=== PATIENT | male | born 1970 | race African-American/Black ===

== ENCOUNTER 2016-05-05 12:34 | Emergency (ER) | payer OTHER, SELFPAY ==
--- NOTE | 2016-05-05 13:47 | ERRECORD ---
[facility] EMERGENCY RECORD HPI URI (13:21 BGOE) CHIEF COMPLAINT: Patient presents for evaluation of nasal congestion, Patient presents for evaluation of cough. HISTORIAN: History provided by patient, patient with cough congeston over past week. mild f/c. martha po. no v/d. no sob. productive cough. not improving. mild fatigue. no aches or harmon. LOCATION: Symptoms are generalized. SEVERITY: Maximum severity of symptoms moderate, Currently symptoms are mild. TIME COURSE: Gradual onset of symptoms, There has been no change in the patient's symptoms over time. ASSOCIATED WITH: No associated chest pain, Associated with chills, Associated with fever, subjective, No associated headache, No associated neck pain, No associated shortness of breath. EXACERBATED BY: Patient's condition exacerbated by nothing. RELIEVED BY: Patient's condition relieved by nothing. ROS (13:22 BGOE) EYES: Negative eye review of systems. MUSCULOSKELETAL: Historian denies arthralgias. SKIN: Historian denies rash. NEUROLOGIC: Negative neurologic review of systems. ENDOCRINE: Negative endocrine review of systems. ALLERGIC/IMMUNOLOGIC: Normal allergy/immunologic system review. PSYCHIATRIC: Negative psychiatric review of systems. PAST MEDICAL HISTORY MEDICAL HISTORY: No past medical history, Flu vaccine not up to date, Tetanus not up to date, Pneumococcal vaccine not up to date. (12:48 CJEF) MALE SURGICAL HISTORY: testicle surgery. HERNIA SX. (12:48 CJEF) PSYCHIATRIC HISTORY: No previous psychiatric history. (12:48 CJEF) SOCIAL HISTORY: Patient drinks socially, Patient denies drug use, Patient currently uses tobacco, smokes cigarettes, social. (12:48 CJEF) NOTES: Nursing records reviewed, Agree with nursing records, Medication list reviewed. (13:24 BGOE) KNOWN ALLERGIES No Known Drug Allergies CURRENT MEDICATIONS (12:47 CJEF) None VITAL SIGNS VITAL SIGNS: BP: 117/68, Pulse: 64, Resp: 18, Pain: 4, O2 sat: 95 on Room Air, Time: 05/05/2016 12:44. (12:44 CJEF) &a-1R&a+25V*p+0X*l0506S*c202B*c15G*c2P*p-0X&a-25V&a+1R Name: Naseem Mccarthy : 1970 M45 MedRec: [id number] AcctNum: [id number] Prepared: Sat May 05, 2016 13:59 by Interface Page 1 of 3 pMD [facility] EMERGENCY RECORD Temp: 98.9 (Oral), Time: 05/05/2016 12:47. (12:47 CJ) BP: 120/70, Pulse: 66, Resp: 18, Temp: 98.9, O2 sat: 96 on RA, Time: 05/05/2016 13:35. (13:35 JPER) PHYSICAL EXAM (13:24 BGOE) CONSTITUTIONAL: Patient afebrile, Pulse normal, Blood pressure normal, Respiratory rate normal, Patient appears non toxic, Patient appears pain free, Patient alert and oriented to person, place and time. HEAD: Head exam included findings of head atraumatic, normocephalic. EYES: Eye exam included findings of eyelids normal to inspection, Pupils equally round and reactive to light, Extraocular muscles intact. ENT: Ear exam normal, Nose exam included findings of, mild rhinorrhea, Pharynx exam normal, Uvula exam normal, Tonsil exam normal. NECK: Neck exam included findings of normal range of motion, Trachea midline. RESPIRATORY CHEST: Respiratory exam included findings of no respiratory distress, Breath sounds not clear, coarse bs bliaterally. CARDIOVASCULAR: Cardiovascular exam included findings of heart rate regular rate and rhythm, Heart sounds normal. ABDOMEN MALE: Abdominal exam normal, Abdominal exam included findings of abdomen nontender, Bowel sounds normal. UPPER EXTREMITY: Upper extremity exam included findings of inspection normal, Range of motion normal. LOWER EXTREMITY: Lower extremity exam included findings of inspection normal, Range of motion normal. NEURO: Neuro exam findings include patient oriented to person, place and time, Speech normal, Gait normal. SKIN: Skin exam included findings of skin warm, dry, and normal in color. LYMPHATIC: Lymphatic exam included findings of cervical nodes normal. PSYCHIATRIC: Psychiatric exam included findings of patient oriented to person place and time. PROBLEM LIST No recorded problems DIAGNOSIS (13:25 BGOE) FINAL: PRIMARY: Acute bronchitis. PRESCRIPTION (13:26 BGOE) azithromycin oral: TABLET : 250 mg : ORAL : Quantity: 250 Unit: mg Route: ORAL Schedule: once a day Dispense: 6 May substitute. Refills: No Refills . NOTES: 500 mg on day 1 then 250 mg on days 2-5 &a-1R&a+25V*p+0X*[id number]*c202B*c15G*c2P*p-0X&a-25V&a+1R Name: Naseem Mccarthy : 1970 M45 MedRec: [id number] AcctNum: [id number] Prepared: Loco May 05, 2016 13:59 by Interface Page 2 of 3 pMD [facility] EMERGENCY RECORD No Refills. promethazine-DM: SYRUP : : ORAL : Quantity: 5 Unit: mL Route: ORAL Schedule: every 6 hours PRN Dispense: 120 Unit: mL May substitute. Refills: No Refills . NOTES: 5-10 mL PO every 6 hrs prn cough/congestion No Refills. DISPOSITION PATIENT: Disposition Type: Discharge, Disposition: *Discharge Home, Condition: Good. (13:25 BGOE) Patient left the department. (13:40 JPER) Obrien: BGOE=MD Faraz, Holger SINGER=LYDIA Osman, Carolyn JPER=LYDIA Benedict, Jazmin &a-1R&a+25V*p+0X*[id number]*c202B*c15G*c2P*p-0X&a-25V&a+1R Name: Naseem Mccarthy : 1970 M45 MedRec: [id number] AcctNum: [id number] Prepared: Loco May 05, 2016 13:59 by Interface Page 3 of 3 pMD MTDD
--- NOTE | 2016-05-05 13:54 | PICIS ---
[facility] EMERGENCY RECORD TRIAGE (12:46 CJEF) TRIAGE NOTES: PT REPORTS DRY COUGH AND PAIN WHEN COUGHING. PT ALSO REPORTS RUNNY NOSE AND BEING HOARSE. PT ALSO REPORTS CONGESTION AND SLIGHT HEADACHE. PT REPORTS COUGHING UP ZULETA PHLEM. (12:46 CJEF) PATIENT: NAME: Naseem Mccarthy, AGE: 45, GENDER: male, : Jessica 1970, TIME OF GREET: Sat May 05, 2016 12:34, PREFERRED LANGUAGE: Serbian, ETHNICITY: Not or , ECODE BILLING MAP: [facility], SSN: [id number], Zip Code: [address], KG WEIGHT: 140.61, PHONE: , , , PERSON ID: [id number], PCP: NONE. (12:46 CJEF) COMPLAINT: FLU LIKE SYMPTOMS. (12:46 CJEF) ADMISSION: URGENCY: 4 Non Urgent, ADMISSION SOURCE: Home, TRANSPORT: Walk-in, BED: TRIAGE. (12:46 CJEF) ASSESSMENT: Assessment: CONGESTION, COUGH, RUNNY NOSE. (12:48 CJEF) PAIN: Patient complains of pain described as, Location CHEST WHEN COUGHING. (12:48 CJEF) IMMUNIZATIONS: Flu vaccine not up to date, Tetanus not up to date, Pneumococcal vaccine not up to date. (12:48 CJEF) SIRS SCORING: Heart Rate 55-109 (0), Temp range 96.8-101.1 (0), respiratory rate 12-24 (0), Mental Status altered: no (0), Yes, Infection or Suspected Infection. (12:48 CJEF) TRIAGE SCREENING: Patient denies suicidal ideation, Patient denies presence of domestic violence. (12:48 CJEF) PROVIDERS: TRIAGE NURSE: Carolyn Osman RN. (12:46 CJEF) VITAL SIGNS: BP 117/68, Pulse 64, Resp 18, Pain 4, O2 Sat 95, on Room Air, Time 05/05/2016 12:44. (12:44 CJEF) Temp 98.9, (Oral), Time 05/05/2016 12:47. (12:47 CJEF) PREVIOUS VISIT ALLERGIES: No Known Drug Allergies. (12:46 CJEF) No Known Drug Allergies. (12:48 CJEF) KNOWN ALLERGIES No Known Drug Allergies CURRENT MEDICATIONS (12:47 CJEF) None VITAL SIGNS VITAL SIGNS: BP: 117/68, Pulse: 64, Resp: 18, Pain: 4, O2 sat: 95 on Room Air, Time: 05/05/2016 12:44. (12:44 CJEF) Temp: 98.9 (Oral), Time: 05/05/2016 12:47. (12:47 CJEF) BP: 120/70, Pulse: 66, Resp: 18, Temp: 98.9, O2 sat: 96 on RA, Time: 05/05/2016 13:35. (13:35 [facility]) NURSING ASSESSMENT: ENT (12:48 CJEF) CONSTITUTIONAL: Complex assessment performed, Patient arrives ambulatory, Gait steady, History obtained from patient, Patient appears comfortable, Patient cooperative, Patient alert, Oriented to &a-1R&a+25V*p+0X*w8152B*c202B*c15G*c2P*p-0X&a-25V&a+1R Name: Naseem Mccarthy : 1970 5 MedRec: [id number] AcctNum: [id number] Prepared: Sat May 05, 2016 14:05 by Interface Page 1 of 5 pMD [facility] EMERGENCY RECORD person, place and time, Skin warm, Skin dry, Skin normal in color, Mucous membranes pink, Mucous membranes moist, Patient is well-groomed, PT REPORTS DRY COUGH AND PAIN WHEN COUGHING. PT ALSO REPORTS RUNNY NOSE AND BEING HOARSE. PT ALSO REPORTS CONGESTION AND SLIGHT HEADACHE. PT REPORTS COUGHING UP ZULETA PHLEM. PAIN: aching pain, TO CHEST WHEN COUGHING, on a scale 0-10 patient rates pain as 4. ENT: Ear assessment findings include ear normal to inspection, Nasal assessment findings include nose normal to inspection, Discharge, thin, from bilateral nare, Congestion, bilaterally, Mouth and throat assessment findings include mouth inspection normal, no associated fever, Associated with headache, GENERALIZED, Notes: PT ALSO REPORTS BEING HOARSE. RESPIRATORY/CHEST: Breath sounds clear, Respiratory assessment findings include respiratory effort easy, Respirations regular, Conversing normally, Neck and chest exam findings include trachea midline, Chest expansion equal, Chest movement symmetrical, no signs of distress, Associated with cough, productive of, PT REPORTS ZULETA MUCUS, no associated fever. NOTES: Patient tolerated procedure well. SAFETY: Side rails up, Cart/Stretcher in lowest position, Family at bedside, Call light within reach, Hospital ID band on. NURSING PROCEDURE: DISCHARGE NOTE (13:35 JPER) DISCHARGE: Patient discharged to home, ambulating without assistance, family driving, accompanied by //partner, Summary of Care printed/ provided, Patient requested and was provided an electronic copy of Discharge Instructions, Transition record given to patient, Discharge instructions given to patient, Prescriptions given and instructions on side effects given, Above person(s) verbalized understanding of discharge instructions and follow-up care, Patient treated and evaluated by physician. BELONGINGS: Belongings remain with patient, Valuables remain with patient. NOTES: Emotional support needed and given. VITAL SIGNS: BP: 120, / 70, Pulse: 66, Resp: 18, Temp: 98.9, O2 sat: 96, on: RA. HPI URI (13:21 BGOE) CHIEF COMPLAINT: Patient presents for evaluation of nasal congestion, Patient presents for evaluation of cough. HISTORIAN: History provided by patient, patient with cough congeston over past week. mild f/c. martha po. no v/d. no sob. productive cough. not improving. mild fatigue. no aches or harmon. LOCATION: Symptoms are generalized. SEVERITY: Maximum severity of symptoms moderate, Currently symptoms are mild. TIME COURSE: Gradual onset of symptoms, There has been no change in the patient's symptoms over time. ASSOCIATED &a-1R&a+25V*p+0X*h5984U*c202B*c15G*c2P*p-0X&a-25V&a+1R Name: Naseem Mccarthy : 1970 M45 MedRec: [id number] AcctNum: [id number] Prepared: Sat May 05, 2016 14:05 by Interface Page 2 of 5 pMD [facility] EMERGENCY RECORD WITH: No associated chest pain, Associated with chills, Associated with fever, subjective, No associated headache, No associated neck pain, No associated shortness of breath. EXACERBATED BY: Patient's condition exacerbated by nothing. RELIEVED BY: Patient's condition relieved by nothing. ROS (13:22 BGOE) EYES: Negative eye review of systems. MUSCULOSKELETAL: Historian denies arthralgias. SKIN: Historian denies rash. NEUROLOGIC: Negative neurologic review of systems. ENDOCRINE: Negative endocrine review of systems. ALLERGIC/IMMUNOLOGIC: Normal allergy/immunologic system review. PSYCHIATRIC: Negative psychiatric review of systems. PAST MEDICAL HISTORY MEDICAL HISTORY: No past medical history, Flu vaccine not up to date, Tetanus not up to date, Pneumococcal vaccine not up to date. (12:48 CJEF) MALE SURGICAL HISTORY: testicle surgery. HERNIA SX. (12:48 CJEF) PSYCHIATRIC HISTORY: No previous psychiatric history. (12:48 CJEF) SOCIAL HISTORY: Patient drinks socially, Patient denies drug use, Patient currently uses tobacco, smokes cigarettes, social. (12:48 CJEF) NOTES: Nursing records reviewed, Agree with nursing records, Medication list reviewed. (13:24 BGOE) PHYSICAL EXAM (13:24 BGOE) CONSTITUTIONAL: Patient afebrile, Pulse normal, Blood pressure normal, Respiratory rate normal, Patient appears non toxic, Patient appears pain free, Patient alert and oriented to person, place and time. HEAD: Head exam included findings of head atraumatic, normocephalic. EYES: Eye exam included findings of eyelids normal to inspection, Pupils equally round and reactive to light, Extraocular muscles intact. ENT: Ear exam normal, Nose exam included findings of, mild rhinorrhea, Pharynx exam normal, Uvula exam normal, Tonsil exam normal. NECK: Neck exam included findings of normal range of motion, Trachea midline. RESPIRATORY CHEST: Respiratory exam included findings of no respiratory distress, Breath sounds not clear, coarse bs bliaterally. CARDIOVASCULAR: Cardiovascular exam included findings of heart rate regular rate and rhythm, Heart sounds normal. &a-1R&a+25V*p+0X*b3504D*c202B*c15G*c2P*p-0X&a-25V&a+1R Name: Naseem Mccarthy : 1970 M45 MedRec: [id number] AcctNum: [id number] Prepared: Sat May 05, 2016 14:05 by Interface Page 3 of 5 pMD [facility] EMERGENCY RECORD ABDOMEN MALE: Abdominal exam normal, Abdominal exam included findings of abdomen nontender, Bowel sounds normal. UPPER EXTREMITY: Upper extremity exam included findings of inspection normal, Range of motion normal. LOWER EXTREMITY: Lower extremity exam included findings of inspection normal, Range of motion normal. NEURO: Neuro exam findings include patient oriented to person, place and time, Speech normal, Gait normal. SKIN: Skin exam included findings of skin warm, dry, and normal in color. LYMPHATIC: Lymphatic exam included findings of cervical nodes normal. PSYCHIATRIC: Psychiatric exam included findings of patient oriented to person place and time. EVENTS TRANSFER: Triage to Emergency Triage. (Sat May 05, 2016 12:46 CJEF) Emergency Triage to Main ED -05. (12:48 CJEF) Removed from Emergency Main ED -05. (13:40 JPER) O2SAT INTERPRETATION (13:25 BGOE) O2SAT: Single pulse oximetry, Oxygen saturation interpretation: Normal. PROBLEM LIST No recorded problems DIAGNOSIS (13:25 BGOE) FINAL: PRIMARY: Acute bronchitis. DISPOSITION PATIENT: Disposition Type: Discharge, Disposition: *Discharge Home, Condition: Good. (13:25 BGOE) Patient left the department. (13:40 JPER) INSTRUCTION (13:26 BGOE) DISCHARGE: BRONCHITIS, ABX TX (ADULT). FOLLOWUP: [facility], -, Primary Care Referral Line, , Follow up with Primary Care Physician in 1-2 days. SPECIAL: rest/hydration Tylenol or Advil for Pain Follow-up with your PCP. PRESCRIPTION (13:26 BGOE) azithromycin oral: TABLET : 250 mg : ORAL : Quantity: 250 Unit: mg Route: ORAL Schedule: once a day Dispense: 6 May substitute. Refills: No Refills . NOTES: 500 mg on day 1 then 250 mg on days 2-5 No Refills. &a-1R&a+25V*p+0X*x1635N*c202B*c15G*c2P*p-0X&a-25V&a+1R Name: Naseem Mccarthy : 1970 M45 MedRec: [id number] AcctNum: [id number] Prepared: [facility] May 05, 2016 14:05 by Interface Page 4 of 5 pMD [facility] EMERGENCY RECORD promethazine-DM: SYRUP : : ORAL : Quantity: 5 Unit: mL Route: ORAL Schedule: every 6 hours PRN Dispense: 120 Unit: mL May substitute. Refills: No Refills . NOTES: 5-10 mL PO every 6 hrs prn cough/congestion No Refills. IMAGING WORK/SCHOOL RELEASE: Image captured from scanner. (13:31 JPER) *DISCHARGE INSTRUCTIONS RECEIPT: Image captured from scanner. (13:37 JPER) *SUPPLY CHARGE SHEET: Image captured from scanner. (13:37 JPER) ADMIN DIGITAL SIGNATURE: LYDIA Benedict, Jazmin. (13:40 JPER) MD Ruth Brian. (13:56 BGOE) Obrien: BGOE=MD Ruth Brian CJEF=LYDIA Osman Cassie JPER=LYDIA Benedict Jana &a-1R&a+25V*p+0X*q4177G*c202B*c15G*c2P*p-0X&a-25V&a+1R Name: Naseem Mccarthy : 1970 M45 MedRec: [id number] AcctNum: [id number] Prepared: Loco May 05, 2016 14:05 by Interface Page 5 of 5 pMD MTDD
== END 2016-05-05 13:35 | disposition home or self-care (01) ==
LOC: MADERS 12:34
DX: J20.9 Acute bronchitis, unspecified (principal); F17.210 Nicotine dependence, cigarettes, uncomplicated
CPT/HCPCS: 99283

== ENCOUNTER 2016-05-30 20:30 | Emergency (ER) | payer OTHER ==
[2016-05-30] MEDS ORDERED: Ketorolac Tromethamine 60 MG/2 ML VIAL ONE (21:32)
[2016-05-30] MEDS ORDERED: Cyclobenzaprine 10 MG TAB ONE (21:32)
--- NOTE | 2016-05-30 22:38 | PICIS ---
[facility] EMERGENCY RECORD TRIAGE (20:56 EROG) TRIAGE NOTES: C/O ACHING PAIN TO RIGHT LOWER BACK. (20:56 EROG) PATIENT: NAME: Naseem Mccarthy, AGE: 46, GENDER: male, : Jessica 1970, TIME OF GREET: SatMay 30, 2016 20:31, PREFERRED LANGUAGE: Tajik, ETHNICITY: Not or , FALL RISK: NO, ECODE BILLING MAP: [facility], SSN: [id number], Zip Code: [address], KG WEIGHT: 131.54, HEIGHT/LENGTH: 182.88cm, BMI: 39.33, PHONE: , , , PERSON ID: [id number], PCP: NONE. (20:56 EROG) COMPLAINT: BACK PAIN. (20:56 EROG) ADMISSION: URGENCY: 4 Non Urgent, ADMISSION SOURCE: Home, TRANSPORT: CAR, BED: TRIAGE. (20:56 EROG) ASSESSMENT: Assessment: C/O ACHING PAIN TO RIGHT LOWER BACK., Symptoms began yesterday. (20:59 EROG) PAIN: Patient complains of pain described as, aching, on a scale 0-10 patient rates pain as 4, Pain is constant, Aggravating factors:, Aggravating factors include WALKING AND MOVING, Relieving factors present, Relieving factors include LAYING DOWN, Notes: STATES WHEN WALKING IT FEELS LIKE MUSCLES TIGHTENING UP. (20:59 EROG) IMMUNIZATIONS: Flu vaccine not up to date, Pneumococcal vaccine not up to date. (20:59 EROG) SIRS SCORING: Heart Rate 55-109 (0), Temp range 96.8-101.1 (0), respiratory rate 12-24 (0), Mental Status altered: no (0), Infection or Suspected Infection: No. (20:59 EROG) TREATMENTS IN PROGRESS: Treatments given Prehospital: TRAMADOL 2 THIS AM. (20:59 EROG) PROVIDERS: TRIAGE NURSE: El Sevilla RN. (20:56 EROG) VITAL SIGNS: BP 142/64, Pulse 63, Resp 16, Temp 97.5, (Tympanic), Pain 4, (Constant), O2 Sat 96, on Room Air, Time 05/30/2016 20:51. (20:51 EROG) PREVIOUS VISIT ALLERGIES: No Known Drug Allergies. (20:56 EROG) No Known Drug Allergies. (20:59 EROG) KNOWN ALLERGIES No Known Drug Allergies CURRENT MEDICATIONS (20:56 EROG) None VITAL SIGNS VITAL SIGNS: BP: 142/64, Pulse: 63, Resp: 16, Temp: 97.5 (Tympanic), Pain: 4 (Constant), O2 sat: 96 on Room Air, Time: 05/30/2016 20:51. (20:51 EROG) BP: 118/71, Pulse: 64, Resp: 18, Temp: 96.7, Pain: 3, O2 sat: 96 on ra, Time: 05/30/2016 22:10. (22:10 EROG) NURSING ASSESSMENT: BACK (21:01 EROG) CONSTITUTIONAL: Patient arrives ambulatory, Gait steady, History &a-1R&a+25V*p+0X*[id number]*c202B*c15G*c2P*p-0X&a-25V&a+1R Name: Naseem Mccarthy : 1970 M46 MedRec: [id number] AcctNum: [id number] Prepared: SatMay 31, 2016 02:43 by Interface Page 1 of 6 pMD [facility] EMERGENCY RECORD obtained from patient, Patient appears, uncomfortable, Patient cooperative, Patient alert, Oriented to person, place and time, Skin warm, Skin dry, Skin normal in color, Mucous membranes pink, Mucous membranes moist, Patient complains of right lower back pain, states pain began yesterday when putting his pants on. PAIN: aching pain, to the lower back, right, Onset of pain 05/29/2016 21:02, constant, on a scale 0-10 patient rates pain as 4, Pain exacerbated by, ambulation, Pain relieved by, remaining still, laying down. NURSING PROCEDURE: DISCHARGE NOTE (22:10 EROG) DISCHARGE: Patient discharged to home, ambulating without assistance, family driving, accompanied by //partner, Summary of Care printed/ provided, Patient requested and was provided an electronic copy of Discharge Instructions, Transition record given to patient, Discharge instructions given to patient, Simple or moderate discharge teaching performed, by Chepe SEVILLA RN, Prescriptions given and instructions on side effects given, Name of prescription(s) given: ibuprofen, flexeril, Above person(s) verbalized understanding of discharge instructions and follow-up care. BELONGINGS: Belongings remain with patient, Valuables remain with patient. VITAL SIGNS: BP: 118, / 71, Pulse: 64, Resp: 18, Temp: 96.7, Pain: 3, O2 sat: 96, on: ra, Time: 2205. MEDICATION ADMINISTRATION SUMMARY Drug Name: ketorolac intramuscular, Dose Ordered: 60 mg, Route: Intramuscular, Status: Given, Time: 21:38 05/30/2016, Drug Name: Flexeril, Dose Ordered: 5 mg, Route: Oral, Status: Given, Time: 21:37 05/30/2016, Detailed record available in Medication Service section. MEDICATION SERVICE Flexeril: Order: Flexeril (cyclobenzaprine HCl) - Dose: 5 mg : Oral Schedule: Now Ordered by: Dejan Nicholas MD Entered by: Dejan Nicholas MD SatMay 30, 2016 21:20 , Acknowledged by: El Sevilla RN SatMay 30, 2016 21:31 Documented as given by: El Sevilla RN SatMay 30, 2016 21:37 Patient, Medication, Dose, Route and Time verified prior to administration. Amount given: 5mg, Amount wasted: 5mg, Site: Medication administered P.O., Correct patient, time, route, dose and medication confirmed prior to administration, Patient advised of actions and side-effects prior to administration, Allergies confirmed and medications reviewed prior to administration, Patient in position of comfort, Cart in &a-1R&a+25V*p+0X*[id number]*c202B*c15G*c2P*p-0X&a-25V&a+1R Name: Naseem Mccarthy : 1970 M46 MedRec: [id number] AcctNum: [id number] Prepared: [facility] May 31, 2016 02:43 by Interface Page 2 of 6 pMD [facility] EMERGENCY RECORD lowest position, Family at bedside, Call light in reach. : Follow Up : Response assessment performed, No signs or symptoms of allergic reaction noted, Decreased pain. (22:11 EROG) ketorolac intramuscular: Order: ketorolac intramuscular (ketorolac tromethamine) - Dose: 60 mg : Intramuscular Ordered by: Dejan Nicholas MD Entered by: Dejan Nicholas MD SatMay 30, 2016 21:19 , Acknowledged by: El Sevilla RN SatMay 30, 2016 21:31 Documented as given by: El Sevilla RN SatMay 30, 2016 21:38 Patient, Medication, Dose, Route and Time verified prior to administration. IM medication, Amount given: 60 mg, Medication administered to right buttock, Patient appears Awake and alert- acceptable, Correct patient, time, route, dose and medication confirmed prior to administration, Patient advised of actions and side-effects prior to administration, Allergies confirmed and medications reviewed prior to administration, Patient tolerated procedure well, Patient in position of comfort, Cart in lowest position, Family at bedside, Call light in reach. HPI BACK (21:22 BPIC) CHIEF COMPLAINT: Patient presents for evaluation of pain, to the right lower back. HISTORIAN: History provided by patient. MECHANISM OF INJURY: No apparent mechanism of injury, Patient does admit repetative motion/lifting that probably execerbated the pain. LOCATION: No radiation back to front, No radiation to the groin, Pain moved from, some radiation to buttock/thigh area. QUALITY: Described as similar to previous episodes. SEVERITY: Maximum severity of symptoms severe, Currently symptoms are moderate. TIME COURSE: Gradual onset of symptoms, There has been no change in the patient's symptoms over time. ASSOCIATED WITH: No associated bladder incontinence, No associated bowel incontinence, No associated dysuria, No associated fever, No associated inability to ambulate, No associated motor weakness, No associated numbness, No associated problems with urination. EXACERBATED BY: Patient's condition exacerbated by extension, Patient's condition exacerbated by flexion, Patient's condition exacerbated by movement, Patient's condition exacerbated by rotation. RELIEVED BY: Patient's condition relieved by nothing. ROS (21:22 BPIC) CONSTITUTIONAL: Negative constitutional review of systems. EYES: Negative eye review of systems. ENT: Negative ears, nose, throat review of systems. CARDIOVASCULAR: Negative cardiovascular review of systems. RESPIRATORY: Negative respiratory review of systems. &a-1R&a+25V*p+0X*c9985X*c202B*c15G*c2P*p-0X&a-25V&a+1R Name: Naseem Mccarthy : 1970 M46 MedRec: [id number] AcctNum: [id number] Prepared: Jessica May 31, 2016 02:43 by Interface Page 3 of 6 pMD [facility] EMERGENCY RECORD GI: Negative gastrointestinal review of systems. MUSCULOSKELETAL: Negative musculoskeletal review of systems. SKIN: Negative skin review of systems. PSYCHIATRIC: Negative psychiatric review of systems. NOTES: All other ROS is negative except as listed in HPI. PAST MEDICAL HISTORY MEDICAL HISTORY: No past medical history, Flu vaccine not up to date, Pneumococcal vaccine not up to date, No past medical history, Flu vaccine not up to date, Tetanus not up to date, Pneumococcal vaccine not up to date. (20:59 EROG) MALE SURGICAL HISTORY: testicle surgery. HERNIA SX. 2014 VERIFIED 05/30/16. (20:59 EROG) PSYCHIATRIC HISTORY: No previous psychiatric history. VERIFIED 05/30/16. (20:59 EROG) SOCIAL HISTORY: Patient drinks socially, Patient denies drug use, Patient currently uses tobacco, smokes cigarettes, social. VERIFIED 05/30/16. (20:59 EROG) NOTES: I have reviewed and agree with the PMH/PSxH/FamHx/SocHx obtained by the nurse. (21:22 BPIC) PHYSICAL EXAM (21:22 BPIC) CONSTITUTIONAL: Vital signs reviewed, Patient afebrile, Pulse normal, Blood pressure normal, Respiratory rate normal, Patient appears non toxic, Patient appears pain free, Patient alert and oriented to person, place and time. HEAD: Head exam included findings of head atraumatic, normocephalic. EYES: Eye exam included findings of eyelids normal to inspection, Pupils equally round and reactive to light, Extraocular muscles intact. ENT: ENT exam normal. NECK: Neck exam included findings of normal range of motion, Trachea midline. RESPIRATORY CHEST: Respiratory exam included findings of no respiratory distress, Breath sounds clear, Chest exam included findings of chest movement symmetrical, Chest expansion equal. CARDIOVASCULAR: Cardiovascular exam included findings of heart rate regular rate and rhythm, Heart sounds normal. BACK: Back exam included findings of normal inspection, Tenderness, Paraspinal musculature. LOWER EXTREMITY: Lower extremity exam included findings of inspection normal, no abrasions, no contusions, Motor strength normal, Sensation intact, no edema, Negative straight leg raise. Some pain with hip flexion on the affected side. NEURO: Neuro exam findings include patient oriented to person, place and time, Speech normal. PSYCHIATRIC: Psychiatric exam included findings of patient oriented to person place and time, Normal affect. &a-1R&a+25V*p+0X*[id number]*c202B*c15G*c2P*p-0X&a-25V&a+1R Name: Naseem Mccarthy : 1970 M46 MedRec: [id number] AcctNum: [id number] Prepared: Jessica May 31, 2016 02:43 by Interface Page 4 of 6 pMD [facility] EMERGENCY RECORD EVENTS TRANSFER: Triage to Emergency Triage. (SatMay 30, 2016 20:56 EROG) Emergency Triage to Main ED -03. (20:59 EROG) Removed from Emergency Main ED -03. (22:12 EROG) DOCTOR NOTES (21:22 BPIC) TEXT: Patient present with low back pain. DDX includes degenerative disc disease, radiculopathy, lumbago, epidural abcess/hematoma, pyriformis syndrome, sacroilitis. There are no neuro deficits or signs of central nervous system involvement. Will discharge with symptomatic treatment and have close O/P follow up. PROBLEM LIST No recorded problems DIAGNOSIS (21:20 BPIC) FINAL: PRIMARY: back pain, ADDITIONAL: Sciatica - RIGHT. DISPOSITION PATIENT: Disposition Type: Discharge, Disposition: *Discharge Home, Condition: Good. (21:20 BPIC) Patient left the department. (22:12 EROG) INSTRUCTION (21:21 BPIC) DISCHARGE: BACK PAIN W/ SCIATICA. FOLLOWUP: [facility], -, Primary Care Referral Line, . SPECIAL: Thank you for choosing [facility] for your care today! Please follow up with your doctor in the next 2-3 days. Return to the emergency department with any emergent or worsening concerns. God Bless you!. PRESCRIPTION (21:20 BPIC) Flexeril: TABLET : 5 mg : ORAL : Quantity: 5 Unit: mg Route: ORAL Schedule: every 8 hours PRN Dispense: 30 Unit: tab(s) May substitute. Refills: No Refills . NOTES: No Refills. ibuprofen: TABLET : 800 mg : ORAL : Quantity: 800 Unit: mg Route: ORAL Schedule: every 8 hours PRN Dispense: 60 Unit: tab(s) May substitute. Refills: No Refills POTENTIAL CONTRAINDICATED INTERACTION: ketorolac intramuscular (ketorolac tromethamine) Override Rationale: Reviewed with patient. NOTES: ^s=No Refills No Refills. &a-1R&a+25V*p+0X*u1794M*c202B*c15G*c2P*p-0X&a-25V&a+1R Name: Naseem Mccarthy : 1970 M46 MedRec: [id number] AcctNum: [id number] Prepared: SatMay 31, 2016 02:43 by Interface Page 5 of 6 pMD [facility] EMERGENCY RECORD IMAGING WORK/SCHOOL RELEASE: Image captured from scanner. (22:06 EROG) *DISCHARGE INSTRUCTIONS RECEIPT: Image captured from scanner. (22:09 EROG) *SUPPLY CHARGE SHEET: Image captured from scanner. (22:09 EROG) ADMIN DIGITAL SIGNATURE: LYDIA Sevilla, El. (22:12 EROG) MD Nicholas Bryan. (SatMay 31, 2016 02:40 BPIC) Obrien: BPIC=MD Nicholas Bryan EROG=LYDIA Sevilla Eugene &a-1R&a+25V*p+0X*x9611G*c202B*c15G*c2P*p-0X&a-25V&a+1R Name: Naseem Mccarthy : 1970 M46 MedRec: [id number] AcctNum: [id number] Prepared: SatMay 31, 2016 02:43 by Interface Page 6 of 6 pMD [facility]
== END 2016-05-30 22:10 | disposition home or self-care (01) ==
LOC: MADERS 20:30
DX: M54.41 Lumbago with sciatica, right side (principal); F17.210 Nicotine dependence, cigarettes, uncomplicated
CPT/HCPCS: 96372; J1885

== ENCOUNTER 2016-08-25 11:48 | Emergency (ER) | payer OTHER ==
[2016-08-25] MEDS ORDERED: Naproxen 500 MG TAB ONE (12:14)
[2016-08-25] MEDS ORDERED: Benzonatate 100 MG CAP ONE (12:14)
[2016-08-25] MEDS ORDERED: AMOXicillin 250 MG CAP ONE (12:14)
== END 2016-08-25 12:17 | disposition home or self-care (01) ==
LOC: MADERS 11:48
DX: J20.9 Acute bronchitis, unspecified (principal); F17.210 Nicotine dependence, cigarettes, uncomplicated
CPT/HCPCS: 99283

== ENCOUNTER 2017-04-23 14:09 | Emergency (ER) | payer OTHER ==
[2017-04-23] MEDS ORDERED: Cyclobenzaprine 10 MG TAB ONE (14:35)
[2017-04-23] MEDS ORDERED: HYDROcodone/Acetaminophen 10/325 mg Tablet ONE (14:35)
== END 2017-04-23 14:43 | disposition home or self-care (01) ==
LOC: MADERS 14:09
DX: M54.5 Low back pain (principal); F17.210 Nicotine dependence, cigarettes, uncomplicated
CPT/HCPCS: 99283

== ENCOUNTER 2017-10-28 10:40 | Emergency (ER) | payer OTHER ==
--- NOTE | 2017-10-28 11:07 | RAD ---
PORTABLE CHEST: Date: 10/28/17 INDICATION: Chest pain. FINDINGS: The lung ngo are clear. Heart and mediastinum appear normal. IMPRESSION: Unremarkable portable chest. POS: [facility]
[2017-10-28 11:16] LABS: Hemoglobin 13.6 g/dL (14.0-18.0); Mean Corpuscular Hemoglobin 30.5 pg (27.0-31.0); Mean Corpuscular Volume 89.5 fL (78.0-98.0); Red Blood Cell (RBC) Count 4.44 mill/uL (4.70-6.10); White Blood Cell (WBC) Count 3.9 thou/uL (4.8-10.8)
[2017-10-28 11:17] LABS: Eosinophils 3 % (0-10); Lymphocytes 58 % (21-51); MDiff Complete? YES; Manual Diff?? YES; Mean Corpuscular HGB CONC 34.1 g/dL (32.0-36.0); Mean Platelet Volume 7.2 fL (7.4-10.4); Monocytes 3 % (0-10); Neutrophil 36 % (42-75); Platelet Count 241 thou/uL (130-400); RBC Distribution Width 12.4 % (11.5-14.5)
[2017-10-28 11:18] LABS: ALT (SGPT) 18 U/L (8-55); AST (SGOT) 17 U/L (5-34); Albumin 4.1 g/dL (3.5-5.0); Alkaline Phosphatase 43 U/L (40-150); Anion Gap 16 mmol/L (10-20); BUN (Urea Nitrogen) 13 mg/dL (8.9-20.6); Bilirubin, Total 0.3 mg/dL (0.2-1.2); Calc. Creatinine Clearance 0 mL/min (70-130); Calcium 8.6 mg/dL (7.8-10.44); Carbon Dioxide 17 mmol/L (22-29); Chloride 110 mmol/L (98-107); Estimated GFR-MDRD 88; Globulin 2.8 g/dL (2.4-3.5); Glucose 126 mg/dL (70-105); Potassium 3.8 mmol/L (3.5-5.1); Protein, Total 6.9 g/dL (6.0-8.3); Sodium 139 mmol/L (136-145)
[2017-10-28 11:25] LABS: CKMB 2.7 ng/mL (0-6.6); Troponin I Less than 0.010 ng/mL (< 0.028)
[2017-10-28 11:32] LABS: Bilirubin Negative (Negative); Blood, Urine Negative (Negative); Clarity Clear (Clear); Glucose, Urine (Dipstick) Negative (Negative); Leukocyte Negative (Negative); Nitrite Negative (Negative); Protein, Urine (Dipstick) Negative (Neg-Trace); Specific Gravity, Urine 1.025 (1.005-1.030); Urobilinogen 0.2 mg/dL (0.2-1.0); pH, Urine 5.5 (5.0-9.0)
[2017-10-28 12:22] LABS: Amphetamine Not Detected (NotDetected); Barbiturates Screen Not Detected (NotDetected); Benzodiazepine Screen Not Detected (NotDetected); Cocaine Metabolite Screen Detected (NotDetected); Medtox Control Line Valid? VALID (VALID); Methadone Not Detected (NotDetected); Methamphetamine Not Detected (NotDetected); Opiate Screen Not Detected (NotDetected); Oxycodone Screen Not Detected (NotDetected); Phencyclidine (PCP) Not Detected (NotDetected); THC/Cannabinoid Screen Detected (NotDetected); Tricyclic Screen Not Detected (NotDetected)
== END 2017-10-28 16:03 | disposition short-term general hospital (02) ==
LOC: MADERS 10:40
DX: R07.2 Precordial pain (principal); R94.31 Abnormal electrocardiogram [ECG] [EKG]; J06.9 Acute upper respiratory infection, unspecified; F17.210 Nicotine dependence, cigarettes, uncomplicated
CPT/HCPCS: 36415; 71045; 80053; 80306; 81003; 82553; 83880; 84484; 85025; 93005; 94760

== ENCOUNTER 2018-07-03 02:31 | Emergency (ER) | payer OTHER ==
[2018-07-03] MEDS ORDERED: Acetaminophen 500 MG TAB ONE (02:45)
[2018-07-03] MEDS ORDERED: Oseltamivir 75 MG CAP ONE (03:11)
[2018-07-03] MEDS ORDERED: Dexamethasone 4 MG TAB ONE (03:15)
[2018-07-03] MEDS ORDERED: Phenergan/Codeine 10-6.25mg/5ml UDCUP ONE (03:15)
== END 2018-07-03 03:29 | disposition home or self-care (01) ==
LOC: MADERS 02:31
DX: J11.1 Influenza due to unidentified influenza virus with other respiratory manifestations (principal); F17.210 Nicotine dependence, cigarettes, uncomplicated
CPT/HCPCS: 87804; 99283; J8540

== ENCOUNTER 2018-08-11 21:09 | Emergency (ER) | payer OTHER ==
[2018-08-11] MEDS ORDERED: Morphine 4 MG/ML VIAL ONE (22:39)
[2018-08-11] MEDS ORDERED: Ketorolac Tromethamine 60 MG/2 ML VIAL ONE (22:39)
[2018-08-11] MEDS ORDERED: methylPREDNISolone Sod Succ/PF 125 MG/2 ML VIAL ONE (22:50)
[2018-08-11] MEDS ORDERED: Water For Inject, Bacteriostat 0 ML ONE (22:50)
== END 2018-08-11 23:09 | disposition home or self-care (01) ==
LOC: MADERS 21:09
DX: M54.5 Low back pain (principal); F17.210 Nicotine dependence, cigarettes, uncomplicated
CPT/HCPCS: 96372; J1885; J2270; J2930

== ENCOUNTER 2018-08-18 14:16 | Outpatient (CLI) | payer OTHER ==
--- NOTE | 2018-08-18 14:53 | RAD ---
LUMBAR SPINE 3 VIEWS: Date: 08/18/18 HISTORY: Low back pain with left-sided sciatica. FINDINGS: There are mild degenerative changes of the lumbar spine. No fracture, subluxation, or bony destructio n is seen. IMPRESSION: Lumbar spondylosis. POS: [facility]
== END 2018-08-18 14:17 | disposition home or self-care (01) ==
LOC: MADRAD 14:16
PROVIDERS: ATTEND Family Medicine
DX: M54.42 Lumbago with sciatica, left side (principal); M47.816 Spondylosis without myelopathy or radiculopathy, lumbar region
CPT/HCPCS: 72100

== ENCOUNTER 2019-03-15 04:03 | Emergency (ER) | payer OTHER, SELFPAY | END 2019-03-15 04:26 | disposition home or self-care (01) | LOC: MADERS 04:03 | DX: B34.9 Viral infection, unspecified (principal); F17.210 Nicotine dependence, cigarettes, uncomplicated | CPT/HCPCS: 99281 ==

== ENCOUNTER 2019-05-18 07:38 | Emergency (ER) | payer OTHER | END 2019-05-18 08:50 | disposition home or self-care (01) | LOC: MADERS 07:38 | DX: J06.9 Acute upper respiratory infection, unspecified (principal); R51 Headache; F17.210 Nicotine dependence, cigarettes, uncomplicated | CPT/HCPCS: 99283 ==

== ENCOUNTER 2019-09-08 14:17 | Emergency (ER) | payer OTHER | END 2019-09-08 15:52 | disposition home or self-care (01) | LOC: MADERS 14:17 | DX: M54.5 Low back pain (principal); I10 Essential (primary) hypertension; F17.210 Nicotine dependence, cigarettes, uncomplicated; Z79.899 Other long term (current) drug therapy | CPT/HCPCS: 99283 ==